=== PATIENT | male | born 1940 | race Caucasian/White ===

== ENCOUNTER 2016-08-14 15:54 | Emergency (ER) | payer OTHER, MEDICARE ==
[~2016-08-14] VITALS: Ht 185.4 cm; Wt 142.9 kg
--- NOTE | ~2016-08-14 | EKG ---
[address] [address] ELECTROCARDIOGRAM REPORT Name: JON MICHELLE Room #: DEP [facility]#: [id number] Admission: 08/14/16 Attend Phys: Discharge: 08/14/16 Date of : 40 Report #: [id number] THIS REPORT FOR: //name// [facility] ED Test Date: 2016-08-14 Test Time: 15:53:38 Pat Name: JON MICHELLE Department: Room: 170 Gender: M Staff Certified Nurse Midwife: MZOOKelsi : 1940 Requested By: Luz Ace Order Number: [id number] MD: Saúl Marino Measurements Intervals [place] Rate: 75 P: 104 IA: 142 QRS: 211 QRSD: 131 T: 27 QT: 397 QTc: 444 Interpretive Statements A-V dual-paced complexes w/ some inhibition No further analysis attempted due to paced rhythm Baseline wander in lead(s) V1 Compared to ECG 10/19/2014 05:02:44 AV dual-paced complex(es) or rhythm no longer present Electronically Signed On 08-15-2016 12:50:15 CDT by Saúl Marino [email or web address] <ELECTRONICALLY SIGNED> By: Saúl Marino MD 08/15/16 1250 1553 1553 Saúl Marino MD /EPI
[~2016-08-14 15:54] MED LIST: ALLEGRA ALLERG180 MG PO; ASPIR 8181 MG PO; CHROMIUM PIC1000 MCG PO; COZAAR 50 MG TA50 M2 PO; GELATIN600 MG PO; GERITOL COMPLE1 EAC2 PO; LIPITOR40 MG PO; MAGOX 400400 MG PO; METFORMIN HCL500 MG PO; MULTIVITAMINS PO; NITROSTAT0.4 M1 SL; PERCOCET 10-321 EACH PO; PLAVIX 75 MG TA75 M1 PO; TYLENOL325 MG PO; ZEBETA10 MG PO; ZINC LOZENGE25 MG PO
[2016-08-14 15:55] VITALS: BP 148/80
[2016-08-14 16:19] LABS: HEMATOCRIT 38.6 % (42.0-52.0); HEMOGLOBIN 13.2 gm/dL (14.0-18.0); MCH 31.5 pg (26.0-34.0); MCHC 34.3 g/dL (28.0-37.0); MCV 91.7 fL (80.0-100.0); RBC 4.21 mil/uL (4.50-6.00); RDW 13.3 % (10.5-14.5); WBC 6.5 thou/uL (4.0-11.0)
[2016-08-14 16:27] LABS: ANION GAP 8 mmol/L (7-16); BUN 19 mg/dL (7-18); CALCIUM 8.8 mg/dL (8.5-10.1); CHLORIDE 106 mmol/L (98-107); CO2 30 mmol/L (21-32); CREATININE 1.2 mg/dL (0.7-1.3); GLUCOSE 100 mg/dL (74-106); POTASSIUM 4.3 mmol/L (3.5-5.1); SODIUM 144 mmol/L (136-145)
[2016-08-14 16:34] LABS: ALBUMIN 4.1 g/dL (3.4-5.0); ALKALINE PHOSPHATASE 66 U/L (46-116); SGOT 17 U/L (15-37); SGPT 21 U/L (30-65); TOTAL BILIRUBIN 0.5 mg/dL (<0.1-1.0); TOTAL PROTEIN 7.1 g/dL (6.4-8.2); TROPONIN-I < 0.04 ng/mL (<0.04-0.07)
[2016-08-14] MEDS ORDERED: ANTIVERT25 MG PO (17:17)
[2016-08-14 17:55] VITALS: BP 138/77
== END 2016-08-14 17:45 | disposition designated cancer center or children's hospital (05) ==
LOC: ER 15:54 → EROBS 16:58 → ER 17:45
PROVIDERS: Physician Assistant
DX: R07.1 Chest pain on breathing (principal); I25.2 Old myocardial infarction; M06.9 Rheumatoid arthritis, unspecified; E11.9 Type 2 diabetes mellitus without complications; E78.00 Pure hypercholesterolemia, unspecified; E66.9 Obesity, unspecified; Z79.82 Long term (current) use of aspirin; Z88.1 Allergy status to other antibiotic agents